=== PATIENT | female | born 1940 | race Caucasian/White ===

== ENCOUNTER → 2019-07-25 13:52 | Outpatient (CLI) | payer MEDICARE, OTHER, SELFPAY ==
[2019-07-25 14:43] LABS: Add Manual Diff / Slide Review NO; Basophils Absolute Auto 0 /uL (0-100); Basophils Percent Auto 0.6 % (0-2); Eosinophils Absolute Auto 100 /uL (0-450); Eosinophils Percent Auto 1.3 % (2-4); Hematocrit 41.9 % (36-46); Hemoglobin 13.9 g/dL (12.0-16.0); Lymphocytes Absolute Auto 1200 /uL (1100-4500); Lymphocytes Percent Auto 25.8 % (25-40); Mean Corpuscular HGB Conc 33.2 % (30-36); Mean Corpuscular Hemoglobin 30.7 PG (26-34); Mean Corpuscular Volume 92.5 fL (80-100); Monocytes Absolute Auto 300 /uL (0-900); Monocytes Percent Auto 6.5 % (3-14); Neutrophils Absolute Auto 3000 /uL (1500-7000); Neutrophils Percent Auto 65.8 % (50-75); Platelet Count 201 X10^3/uL (150-400); Red Blood Cell Count 4.53 X10^6/uL (4.0-5.2); Red Cell Distribution Width 13.2 % (11.6-14.8); White Blood Cell Count 4.6 X10^3/uL (4.5-11.0)
[2019-07-25 15:05] LABS: Erythrocyte Sedimentation Rate 4 MM/HR (0-20)
[2019-07-25 15:19] LABS: C-Reactive Protein Quant < 0.5 mg/dL (<1.0)
== END ==
PROVIDERS: Visit Provider Orthopaedic Surgery
DX: M79.605 Pain in left leg (principal)
CPT/HCPCS: 36415; 85025; 85651; 86140

== ENCOUNTER → 2019-07-29 14:44 | Outpatient (CLI) | payer MEDICARE, OTHER, SELFPAY ==
--- NOTE | 2019-07-29 | DI.MRI.S_ITS ---
PROCEDURE: MR LUMBAR SPINE WO CON INDICATIONS: IDIOPATHIC SCOLIOSIS TECHNIQUE: Noncontrast sagittal T1 spin echo and T2 fast echo, sagittal STIR, axial T1 and T2 fast spin echo through the lumbar spine. In cases with scoliosis, additional coronal T2 fast spin echo may be performed. COMPARISON: [facility], CR, XR LUMBAR SPINE 2 OR 3 VIEWS, 07/25/2019, 13:06. FINDINGS: Image quality: Excellent. Alignment and Curvature: Severe kyphoscoliosis centered at the L3 level. Trace retrolisthesis of L3 on L4 and L4 on L5 Bone Marrow: No fracture or focal osseous destruction. Multilevel degenerative endplate sclerosis and spurring. Diffuse facet arthropathy. Spinal Cord: Conus medullaris terminates at the L1 level. Visualized cord demonstrates normal signal and size. Paraspinous Soft Tissues: No paravertebral masses. L1-L2: No canal stenosis. Partial effacement of the left lateral recess. The right lateral recess appears patent. No right-sided foraminal narrowing, however the left neuroforamina is not well-seen due to scoliotic curvature L2-L3: No high-grade central canal narrowing. There is partial effacement of the left lateral recess. The right lateral recess appears patent. No right foraminal stenosis. Mild left foraminal narrowing L3-L4: No high-grade canal stenosis. Partial effacement of both lateral recesses with bilaterally symmetric appearance. Mild bilateral foraminal narrowing. L4-L5: No central canal or lateral recess narrowing. Minimal left foraminal stenosis. Moderate right foraminal narrowing with slight nerve root compression L5-S1: No high-grade central canal stenosis. Lateral recess appear patent. No definite left foraminal stenosis. Moderate to severe right foraminal narrowing with minimal if any nerve root compression IMPRESSION: Diffuse lumbar spondylosis and severe dextroscoliosis centered at the L3 level. No high-grade central canal narrowing. Moderate right L4-L5 foraminal stenosis. Moderate to severe right L5-S1 foraminal stenosis Dictated by: Thanh Jeff M.D. on 07/29/2019 at 16:19 Approved by: Thanh Jeff M.D. on 07/29/2019 at 16:26
--- NOTE | 2019-07-29 | DI.MRI.S_ITS ---
PROCEDURE: MR HIP LT WO CON INDICATIONS: Other idiopathic scoliosis, thoracolumbar region TECHNIQUE: Noncontrast coronal T1 spin echo and STIR through the bony pelvis. Coronal and axial T2 fast spin echo with fat saturation, sagittal T1 spin echo, and oblique axial T2 fast spin echo with fat saturation through the hip. COMPARISON: [facility], CR, XR PELVIS WITH LATERAL HIP LEFT, 07/25/2019, 13:12. [facility], CT, ABDOMEN/PELVIS WITH CONTRAST, 04/28/2017, 23:40. FINDINGS: Image quality: Suboptimal related to susceptibility artifact from the patient's left hip arthroplasty. Bones: Evaluation of the osseous structures of the left hip is suboptimal related to susceptibility artifact from a left hip prosthesis. No displaced fractures or dislocations are appreciated involving the imaged osseous structures. There is a moderate-sized left hip effusion with associated synovial hypertrophy. Imaged portions of the lower lumbar spine demonstrates severe multilevel degenerative changes that are not well characterized. There are moderate degenerative changes of the right hip and sacroiliac joints. Soft tissues: Evaluation of the overlying soft tissues is suboptimal related to metallic susceptibility artifact from the left hip prosthesis. However, there is no soft tissue mass or fluid collection evident. The distal left gluteus medius and gluteus minimus tendons are intact. The proximal hamstrings and distal iliopsoas tendons are also intact. There is no significant muscle atrophy or edema. Included intrapelvic structures demonstrate no free fluid or loculated fluid collection. Imaged bowel loops do not appear to be distended or dilated. No adenopathy is appreciated within the pelvis. The urinary bladder is decompressed and subsequently not well evaluated. A large amount of stool seen within the rectal vault. IMPRESSION: 1. Left hip arthroplasty results in suboptimal evaluation of the left hip. 2. Moderate-sized left hip effusion with associated synovial hypertrophy may be reactive to the patient's left hip prosthesis. The possibility of metallosis or superimposed joint infection should be excluded clinically. 3. No acute fractures are appreciated. Dictated by: Orestes Willoughby M.D. on 07/29/2019 at 15:35 Approved by: Orestes Willoughby M.D. on 07/29/2019 at 15:40
== END ==
PROVIDERS: PCP Family Medicine; Visit Provider Family Medicine
DX: M41.25 Other idiopathic scoliosis, thoracolumbar region (principal); R29.898 Other symptoms and signs involving the musculoskeletal system; M47.816 Spondylosis without myelopathy or radiculopathy, lumbar region; M47.818 Spondylosis without myelopathy or radiculopathy, sacral and sacrococcygeal region; M48.061 Spinal stenosis, lumbar region without neurogenic claudication; M48.07 Spinal stenosis, lumbosacral region; M51.37 Other intervertebral disc degeneration, lumbosacral region; M25.452 Effusion, left hip; M41.9 Scoliosis, unspecified; M79.605 Pain in left leg; Z96.642 Presence of left artificial hip joint
CPT/HCPCS: 72148; 73721

== ENCOUNTER → 2020-08-31 11:08 | Outpatient (CLI) | payer MEDICARE, OTHER, SELFPAY ==
--- NOTE | 2020-08-31 | DI.MRI.S_ITS ---
PROCEDURE: MR STROKE Pre- and post-contrast brain MRI, non-contrast brain MR angiogram, pre- and postcontrast neck MR angiogram INDICATIONS: BLURRED VISION TECHNIQUE: Brain: Noncontrast axial T1 spin echo, axial T2 fast spin echo, sagittal and axial FLAIR, coronal T2 fast spin echo, axial gradient echo, axial diffusion and ADC through the brain. After the administration of contrast, axial 3D VIBE of the cranial vasculature and brain. Brain MRA: Non-contrast 3-D time of flight MR angiogram, with multiple zartuly-zrxwyhfwy-largcfgoav (MIP) reformats performed. Neck MRA: Axial and sagittal TruFISP through the neck. Coronal dynamic MR angiogram during administration of contrast in the arterial and venous phases, with 3-dimenstional qqmtumb-abifehcgo-vtdrxjgnkw (MIP) reformats constructed from subtraction images. COMPARISON: None. FINDINGS: Image quality: Degraded by body habitus. BRAIN: CSF spaces: Ventricles are normal in size and shape. Basal cisterns are patent. No extra-axial fluid collections. Brain: No intracranial bleeds or mass effects. Mild diffuse cerebral volume loss. Minimal degree of patchy high FLAIR signal within the periventricular white matter. Brandon-white matter interface is normal. Diffusion weighted images show no acute ischemic insults. Brainstem appears normal. Normal intravascular flow voids are present. No abnormal intracranial enhancement. Skull and face: Calvarial marrow signal is normal. Orbits appear normal. Sinuses: Sinuses and mastoids are clear. BRAIN MR ANGIOGRAM: Anterior circulation: Intracranial internal carotid arteries are normal in size and enhancement. Right proximal anterior cerebral artery is suboptimally evaluated secondary to the vessel angulation, but is grossly patent. Left anterior cerebral artery is within normal limits.. The flow within the middle cerebral arteries is normal and symmetric. The anterior communicating artery is seen. No stenoses, occlusions, or aneurysms. Posterior circulation: The visualized portions of the vertebral arteries demonstrate normal caliber, and join to form a normal appearing basilar artery. The flow within the posterior cerebral arteries is normal and symmetric. No stenoses, occlusions, or aneurysms. NECK MR ANGIOGRAM: Carotids: Great vessels demonstrate a conventional anatomy as they arise from the aortic arch. The origins of the common carotid arteries appear patent. The calibers and courses of both common carotid arteries are normal. The bifurcation regions appear normal bilaterally. The internal carotid arteries demonstrate normal course and caliber. Posterior circulation: The origins of the vertebral arteries appear patent. More superior portions of both vertebral arteries demonstrate normal course and caliber, and join to form a normal appearing basilar artery. Miscellaneous: Subclavian arteries appear patent. Pre-contrast images through the neck show no soft tissue abnormalities. IMPRESSION: BRAIN MRI: Mild volume loss. Minimal small vessel ischemic disease. No recent infarct. BRAIN MR ANGIOGRAM: Negative cerebral MR angiography. NECK MR ANGIOGRAM: 1. No internal carotid artery stenosis. 2. Patent bilateral vertebral arteries. Dictated by: Charlie Castelan M.D. on 08/31/2020 at 14:09 Approved by: Charlie Castelan M.D. on 08/31/2020 at 14:13
== END ==
PROVIDERS: PCP Family Medicine; Referring Provider Family Medicine; Visit Provider Family Medicine
DX: H53.8 Other visual disturbances (principal)
CPT/HCPCS: 70548; 70553

== ENCOUNTER → 2020-11-10 12:52 | Outpatient (CLI) | payer MEDICARE, OTHER, SELFPAY ==
--- NOTE | 2020-11-10 12:54 | DI.CT.S_ITS ---
PROCEDURE: CT CHEST WO CON INDICATIONS: Cough,Parkinson's disease TECHNIQUE: Noncontrast 5 mm thick sections acquired from the pulmonary apices to the posterior costophrenic angles. 1 mm lung window, 5 mm thick coronal and sagittal and 7 mm axial MIP reformats were then acquired. For radiation dose reduction, the following was used: automated exposure control, adjustment of mA and/or kV according to patient size. COMPARISON: None. FINDINGS: Image quality: Excellent. Lungs and pleura: No acute air space opacities. There is no sign of pneumonia or bronchiectasis, or pleural disease. Scoliosis convex leftward centered at the lower thoracic spine is associated with convex rightward scoliosis at the lumbosacral spine. This produces a uhnv-ly-skbklnfu degree of compensatory reduction and increase in lung parenchyma depending on the association with the curvatures. There is a thin band of atelectasis at the right anterior middle lobe medial segment, chronic in appearance. No pleural effusions or pneumothorax. Central and peripheral airways are patent and normal in caliber. Mediastinum: Heart size is normal. No pericardial effusion. No mediastinal adenopathy by size criteria. Thoracic aorta and central pulmonary arteries are normal in size. Esophagus is normal in caliber. No hiatal hernia. Bones and chest wall: No suspicious bony lesions. No vertebral body compression fractures. No axillary or supraclavicular adenopathy by size criteria. Thyroid gland is not well seen by this noncontrast technique . Abdomen: Visualized upper abdominal solid organs and bowel loops appear normal in the absence of contrast. IMPRESSION: Scoliosis with resultant small areas of atelectasis depending on the curvature nearby. No active airspace disease is found. A thin band of linear atelectasis is seen within the medial segment right middle lobe as result. No bronchiectasis or evidence of chronic bronchitis is found by this study. No underlying neoplasm is suspected. Dictated by: Bruce Santo M.D. on 11/10/2020 at 12:19 Approved by: Bruce Santo M.D. on 11/10/2020 at 12:22
== END ==
PROVIDERS: PCP Family Medicine; Referring Provider Family Medicine; Visit Provider Family Medicine
DX: R05 Cough (principal); G20 Parkinson's disease; M41.84 Other forms of scoliosis, thoracic region
CPT/HCPCS: 71250

== ENCOUNTER → 2021-07-06 11:27 | Outpatient (CLI) | payer MEDICARE, OTHER, SELFPAY ==
--- NOTE | 2021-07-06 11:28 | DI.MRI.S_ITS ---
PROCEDURE: MR CERVICAL SPINE WO CON INDICATIONS: Other abnormalities of gait and mobility TECHNIQUE: Noncontrast sagittal T1 spin echo and T2 fast spin echo, sagittal STIR, foraminal oblique sagittal T2 fast spin echo, and axial gradient echo or T2 fast spin echo through the cervical spine. COMPARISON: None. FINDINGS: Image quality: Excellent. Alignment and Curvature: There is grade 1 anterolisthesis of C4 on C5 and C6 on C7 and grade 1 retrolisthesis of C5 on C6. Bone Marrow: Marrow demonstrates normal overall signal. Spinal Cord: Visualized spinal cord has normal size and signal. No cerebellar tonsillar herniation. Paraspinous Soft Tissues: No paravertebral masses. Prevertebral soft tissues are normal in thickness. C2-C3: There is disc desiccation without significant disc bulging. No significant spinal canal stenosis or neural foraminal narrowing. C3-C4: There is disc desiccation as well as mild left uncovertebral and facet hypertrophy, resulting in mild narrowing of the left neural foramen without significant right neural foraminal narrowing or spinal canal stenosis. C4-C5: There is grade 1 anterolisthesis of C4 on C5 with disc desiccation and mild posterior disc-osteophyte complex as well as bilateral facet and uncovertebral joint hypertrophy. Findings result in mild bilateral neural foraminal narrowing without significant spinal canal stenosis. C5-C6: There is mild grade 1 retrolisthesis of C5 on C6 with disc desiccation and disc space narrowing as well as posterior disc osteophyte complex and bilateral uncovertebral joint and facet hypertrophy. Findings result in mild narrowing of the central spinal canal as well as moderate to severe bilateral neural foraminal narrowing. C6-C7: There is grade 1 anterolisthesis of C6 on C7 with disc desiccation and disc space narrowing as well as posterior disc-osteophyte complex and bilateral uncovertebral joint and facet hypertrophy. Findings result in mild narrowing of the central spinal canal and mild bilateral neural foraminal narrowing. C7-T1: No significant spinal canal stenosis or neural foraminal narrowing. IMPRESSION: 1. At C5-6, and there is mild spinal canal narrowing and moderate to severe bilateral neural foraminal narrowing. 2. Additional multilevel degenerative disc disease and facet and uncovertebral joint hypertrophy is described in detail in the body of the report. No high-grade spinal canal stenosis. 3. Mild multilevel grade 1 degenerative spondylolisthesis. Dictated by: Rasheed Moran M.D. on 07/06/2021 at 15:11 Approved by: Rasheed Moran M.D. on 07/06/2021 at 15:24
--- NOTE | 2021-07-06 11:28 | DI.MRI.S_ITS ---
PROCEDURE: MR HEAD/BRAIN WO CON INDICATIONS: Other abnormalities of gait and mobility TECHNIQUE: Non-contrast axial T1 spin echo, axial T2 fast spin echo, sagittal and axial FLAIR, coronal T2 fast spin echo, axial gradient echo, axial diffusion and ADC through the brain. COMPARISON: None. FINDINGS: Image quality: Excellent. CSF spaces: Ventricles appear symmetric in size and shape. Basal cisterns are patent. No extra-axial fluid collections. Brain: No intracranial bleeds or mass effects. There is cerebral volume loss for age. There are periventricular and deep white matter chronic small vessel ischemic changes. Brainstem appears normal. Diffusion-weighted images show no acute ischemic insults. No chronic ischemic insults. Normal intravascular flow voids are present. Skull and face: Calvarial bone marrow is normal in signal. Orbits are normal. Sinuses: Sinuses and mastoids are clear. IMPRESSION: Diffuse small white matter changes, probably represent chronic microvascular ischemic disease, versus statistically less likely demyelination or other infectious, inflammatory, neurodegenerative etiology, technically nonspecific. Dictated by: Thanh Jeff M.D. on 07/06/2021 at 16:31 Approved by: Thanh Jeff M.D. on 07/06/2021 at 16:34
== END ==
PROVIDERS: PCP Family Medicine; Referring Provider Psychiatry & Neurology Neurology; Visit Provider Psychiatry & Neurology Neurology
DX: M48.02 Spinal stenosis, cervical region (principal); M50.31 Other cervical disc degeneration, high cervical region; M43.12 Spondylolisthesis, cervical region; R26.89 Other abnormalities of gait and mobility; R29.2 Abnormal reflex; R29.6 Repeated falls
CPT/HCPCS: 70551; 72141

== ENCOUNTER → 2021-08-25 10:49 | Outpatient (CLI) | payer MEDICARE, OTHER, SELFPAY ==
--- NOTE | 2021-08-25 10:52 | DI.US.S_ITS ---
PROCEDURE: US EXTREMITY NONVASC LOWER LT INDICATIONS: Localized swelling, mass and lump, left lower limb TECHNIQUE: Real-time scanning was performed of the left medial anterior calf , with image documentation. COMPARISON: None. FINDINGS: No definitive mass, fluid collection or lymphadenopathy is seen. IMPRESSION: No definitive sonographic mass identified in the region of interest. Dictated by: Julian HILL Interpreted: Pradeep Paiz MD on 08/25/2021 at 11:28 Transcribed by: VALENTINA on 08/25/2021 at 11:29 Approved by: Pradeep Paiz M.D. on 08/25/2021 at 12:47
== END ==
PROVIDERS: PCP Family Medicine; Referring Provider Family Medicine; Visit Provider Family Medicine
DX: R22.42 Localized swelling, mass and lump, left lower limb (principal)
CPT/HCPCS: 76882

== ENCOUNTER → 2021-10-10 11:03 | Outpatient (CLI) | payer MEDICARE, OTHER, SELFPAY | PROVIDERS: PCP Family Medicine; Referring Provider Family Medicine; Visit Provider Family Medicine | DX: I89.0 Lymphedema, not elsewhere classified (principal); L97.822 Non-pressure chronic ulcer of other part of left lower leg with fat layer exposed; L08.9 Local infection of the skin and subcutaneous tissue, unspecified; R60.0 Localized edema; G20 Parkinson's disease; I87.2 Venous insufficiency (chronic) (peripheral); Z74.09 Other reduced mobility | CPT/HCPCS: 11042; 87070; 87075; 87077; 87147; 87186; 87205; 99204; 99214 ==

== ENCOUNTER → 2021-10-19 15:45 | Outpatient (CLI) | payer MEDICARE, OTHER, SELFPAY | PROVIDERS: PCP Family Medicine; Referring Provider Family Medicine; Visit Provider Family Medicine | DX: I89.0 Lymphedema, not elsewhere classified (principal); I87.2 Venous insufficiency (chronic) (peripheral); L97.822 Non-pressure chronic ulcer of other part of left lower leg with fat layer exposed; L97.821 Non-pressure chronic ulcer of other part of left lower leg limited to breakdown of skin; L08.9 Local infection of the skin and subcutaneous tissue, unspecified; B95.7 Other staphylococcus as the cause of diseases classified elsewhere; R60.0 Localized edema; G20 Parkinson's disease; Z74.09 Other reduced mobility | CPT/HCPCS: 11042; 87070; 87075; 87205; 99214 ==

== ENCOUNTER → 2021-11-03 15:53 | Outpatient (CLI) | payer MEDICARE, OTHER, SELFPAY | PROVIDERS: PCP Family Medicine; Referring Provider Family Medicine; Visit Provider Family Medicine | DX: I89.0 Lymphedema, not elsewhere classified (principal); I87.2 Venous insufficiency (chronic) (peripheral); L97.822 Non-pressure chronic ulcer of other part of left lower leg with fat layer exposed; R60.0 Localized edema; G20 Parkinson's disease; Z74.09 Other reduced mobility | CPT/HCPCS: 11042 ==

== ENCOUNTER → 2021-11-09 15:10 | Outpatient (CLI) | payer MEDICARE, OTHER, SELFPAY | PROVIDERS: PCP Family Medicine; Referring Provider Family Medicine; Visit Provider Family Medicine | DX: I89.0 Lymphedema, not elsewhere classified (principal); L97.822 Non-pressure chronic ulcer of other part of left lower leg with fat layer exposed; R60.0 Localized edema; G20 Parkinson's disease; Z74.09 Other reduced mobility | CPT/HCPCS: 11042 ==

== ENCOUNTER → 2021-11-15 13:36 | Outpatient (CLI) | payer MEDICARE, OTHER, SELFPAY ==
--- NOTE | 2021-11-15 | DI.ECHO.S_ITS ---
[place] [facility] +---------+ : : [address] : : : : [id number] : : : : Phone: [phone]+ Echocardiogram Report + + :Name: MEGAN LEUNG Study Date: 11/15/2021 Height: 64.5 in: :[facility] ReadingLocation: Weight: 135 lb : : Gender: Female BSA: 1.7 m2 : :: 1940 Age: 81 yrs BP: 118/67 mmHg: :Reason For Study: ATRAIL PREMATURE DEPOLARIZATION : :Ordering Physician: GLADYS, : :ALCON Performed By: Gabi Tomlinson : :Referring: ALCON LANG : + + Interpretation Summary 1) Normal left ventricular thickness, size, wall motion, and systolic function (EF 60-65%). 2) Normal right ventricular size and function. 3) There is mild aortic regurgitation. 4) No prior Echo available for comparison. Procedure: A two-dimensional transthoracic echocardiogram with color flow and Doppler was performed. The study quality was technically adequate. There is no prior echocardiogram noted for this patient. The patient was in sinus rhythm with heart rates between 63-73 bpm during the exam. Left Ventricle: The left ventricle is normal in size and wall thickness. Proximal septal thickening is noted. The ejection fraction is estimated to be 60-65%. Left ventricular systolic function appears normal without focal wall motion abnormalities. Right Ventricle: The right ventricle is normal in size and function. Atria: The left atrium is moderately dilated. Right atrial size is normal. There is no Doppler evidence for an interatrial shunt. Mitral Valve: The mitral valve is normal in structure and function. There is mild mitral annular calcification. There is trace mitral regurgitation. Aortic Valve: The aortic valve is trileaflet. The aortic valve opens well. There is no aortic valve stenosis. There is mild aortic regurgitation. Tricuspid Valve: The tricuspid valve is normal in structure and function. There is mild tricuspid regurgitation. Pulmonic Valve: The pulmonic valve leaflets are thin and pliable; valve motion is normal. There is trace pulmonic regurgitation. Great Vessels: The aortic root is normal size. The ascending aorta is at the upper limits of normal in size. The IVC is of normal diameter and collapses greater than 50% with a sniff. This suggests a low right atrial pressure of 3 mm Hg. Pericardium/ Pleura There is no pericardial effusion. There is no pleural effusion. MMode/2D Measurements & Calculations LVIDd: 4.2 cm LVOT diam: 2.2 cm LVIDs: 2.6 cm Ao root diam: 3.4 cm FS: 38.1 % asc Aorta Diam: 3.7 cm IVSd: 0.58 cm Ao Arch Diam (Prox Trans): 2.3 cm LVPWd: 0.81 cm LV sr. diameter/BSA (cm/m^2): 2.5 LV sys. diameter/BSA (cm/m^2): 1.6 LA A2 area: 26.9 cm2 RA long axis: 5.5 cm LA A4 area: 18.7 cm2 RA area: 16.4 cm2 LA length (vol): 5.4 cm RA vol: 42.1 ml LA vol: 79.8 ml RA : 25.3 ml/m2 LA vol index: 47.9 ml/m2 IVC diam: 1.5 cm RVD1 (basal): 3.5 cm TAPSE: 1.9 cm Doppler Measurements & Calculations Ao V2 max: 159.5 cm/sec LVOT Max Akil: 147.4 cm/sec Ao V2 mean: 115.5 cm/sec LV V1 max P.7 mmHg Ao max P.2 mmHg LV V1 VTI: 29.9 cm Ao mean P.8 mmHg PATRICA(I,D): 3.2 cm2 Ao V2 VTI: 36.5 cm PATRICA(V,D): 3.7 cm2 sev ratio: 0.82 PATRICA indexed to BSA (cm^2/m^2): 1.9 MV E max akil: 85.3 cm/sec TR max akil: 252.2 cm/sec MV A max akil: 103.7 cm/sec TR max P.5 mmHg MV E/A: 0.82 PA V2 max: 103.9 cm/sec Med Peak E' Akil: 5.8 cm/sec PA V2 mean: 75.7 cm/sec E/E' med: 14.7 PA mean P.5 mmHg Lat Peak E' Akil: 9.3 cm/sec PA pr(Accel): 19.1 mmHg E/E' lat: 9.2 E/e' average: 11.9 MV dec time: 0.26 sec SV(LVOT): 118.3 ml Reading Physician:12:00 PM
== END ==
PROVIDERS: PCP Family Medicine; Referring Provider Internal Medicine Cardiovascular Disease; Visit Provider Internal Medicine Cardiovascular Disease
DX: I08.2 Rheumatic disorders of both aortic and tricuspid valves (principal); I49.1 Atrial premature depolarization; R60.0 Localized edema
CPT/HCPCS: 93306

== ENCOUNTER → 2022-10-06 11:00 | Outpatient (CLI) | payer MEDICARE, OTHER, SELFPAY ==
--- NOTE | 2022-10-06 | DI.MG.S_ITS ---
BILATERAL DIGITAL SCREENING MAMMOGRAM 3D/2D WITH CAD: 10/06/2022 CLINICAL: Routine screening. Comparison is made to exams dated: 02/12/2019 mammogram, 06/08/2016 mammogram, and 12/02/2014 mammogram - outside facility. Both breasts are heterogeneously dense, which may obscure small masses (category c / 51-75% glandular tissue). Current study was also evaluated with a Computer Aided Detection (CAD) system. No significant masses, calcifications, or other findings are seen in either breast. There has been no significant interval change. IMPRESSION: NEGATIVE There is no mammographic evidence of malignancy. A 1 year screening mammogram is recommended. Based on the Tyrer Cuzick model (a risk assessment model) the patient's lifetime risk is 1.2% and her 10 year risk is 0.0%. According to the ACR, ACS, and NCCN guidelines, an annual breast MRI exam along with mammogram is recommended if the patient's lifetime risk is 20% or greater. This exam was interpreted at Station ID: [id number]. NOTE: For mammograms, a report in lay terms will be sent to the patient. Approximately 15% of breast malignancies will not be visualized mammographically. In the management of a palpable breast mass, a negative mammogram must not discourage biopsy of a clinically suspicious lesion. Electronically Signed By: Maggie vega/francine:10/06/2022 14:08:44 letter sent: Normal Exam ACR BI-RADS Category 1: Negative [id number]
== END ==
PROVIDERS: PCP Family Medicine; Referring Provider Family Medicine; Visit Provider Family Medicine
DX: Z12.31 Encounter for screening mammogram for malignant neoplasm of breast (principal)
CPT/HCPCS: 77063; 77067

== ENCOUNTER 2023-03-20 22:53 | Emergency (ER) | payer MEDICARE, OTHER, SELFPAY ==
[2023-03-20 23:32] VITALS: BP 112/53; PULSE 70; RESP 18; TEMP 36.1; O2SAT 96; BMI 23.3
[2023-03-20 23:55] VITALS: BP 97/51; PULSE 80; RESP 18; O2SAT 97
--- NOTE | 2023-03-21 00:05 | DI.CT.S_ITS ---
PROCEDURE: CT ABDOMEN PELVIS W CON INDICATIONS: R sided flank pain TECHNIQUE: After the administration of IV contrast, axial sections were acquired from the lung bases to the pubic symphysis. Coronal and sagittal reformats were performed. For radiation dose reduction, the following was used: automated exposure control, adjustment of mA and/or kV according to patient size. COMPARISON: [facility], CT, ABDOMEN/PELVIS WITH CONTRAST, 04/28/2017, 23:40. FINDINGS: Image quality: There is metallic streak artifact from patient's left hip prosthesis. Lung bases: There is mild scarring and atelectasis in the lung bases. Heart: Heart is normal in size. There is a moderate size hiatal hernia. ABDOMEN: Liver: No mass lesion. Gallbladder: Within normal limits without calcified gallstones. Biliary ducts: No biliary ductal dilatation. Pancreas: Unremarkable. Spleen: Normal in size. Adrenal Glands: No adrenal nodules. Kidneys and Ureters: There is an obstructing stone at the right ureteropelvic junction measuring up to 1.2 cm with attenuation values of approximately 2862-4513 Hounsfield units. There is moderate right hydronephrosis with mild urothelial thickening. No left hydronephrosis. Stomach and Bowel: Stomach, small bowel loops, and colon are normal in caliber and wall thickness. The appendix is normal. There is a moderate amount of colonic stool suggestive of constipation. Peritoneum: No abnormal intraperitoneal fluid. No free air. Ventral Wall: No hernia. Abdominal Nodes: No retroperitoneal or mesenteric adenopathy by size criteria. Vessels: Aorta and inferior vena cava are normal in size. 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 PELVIS: Pelvic Organs: There is a left adnexal cyst measuring up to 2.3 cm. Bladder: Unremarkable. Pelvic Nodes: No enlarged lymph nodes. Miscellaneous: No inguinal hernias are seen. Bones: There is a dextroscoliosis of the thoracolumbar spine centered at L2. Visualized osseous structures demonstrate no suspicious focal lesions. IMPRESSION: 1. Obstructing urinary stone at the right UPJ with moderate hydronephrosis. There is associated mild urothelial thickening. Recommend correlation clinically for possible urinary tract infection. 2. Moderate hiatal hernia. Dictated by: Narendra Chacko M.D. on 03/21/2023 at 1:37 Approved by: Narendra Chacko M.D. on 03/21/2023 at 1:55
--- NOTE | 2023-03-21 00:05 | ED_ITS ---
HPI - Back Pain/Injury General Chief Complaint: Back Pain/Injury Stated Complaint: states possible kidney stone Time Seen by Provider: 03/20/23 23:50 Source: patient and family Mode of arrival: Ambulatory Limitations: no limitations History of Present Illness HPI Narrative: Patient is an 82-year-old female who is here for evaluation of right-sided flank pain and concern for potential kidney stone. She has had kidney stones in the past and this feels somewhat similar to that. Started to have right-sided flank pain a couple days ago that got worse yesterday. Saw her primary doctor. Had a urinalysis that had blood in the urine. Was sent here to the emergency department for concern of UTI. She also states she is having somewhat of a headache. No fevers. Related Data Home Medications Medication Instructions Recorded Confirmed carbidopa 10 mg-levodopa 100 mg ##0 04/28/17 02/16/21 tablet calcium carbonate 500 mg calcium 500 mg PO DAILY 12/29/20 02/16/21 (1,250 mg) tablet carbidopa ER 50 mg-levodopa 200 mg 1 tab PO BEDTIME 12/29/20 02/16/21 tablet,extended release cholecalciferol (vitamin D3) 25 25 mcg PO DAILY 12/29/20 02/16/21 mcg (1,000 unit) capsule cyclosporine 0.05 % eye drops drp ophthalmic (eye) Q12H 12/29/20 02/16/21 ibuprofen 800 mg tablet 800 mg PO Q8H PRN pain 12/29/20 02/16/21 melatonin 1 mg tablet 1 mg PO BEDTIME PRN 12/29/20 02/16/21 pramipexole 0.125 mg tablet 0.25 mg PO BEDTIME 12/29/20 02/16/21 rasagiline 0.5 mg tablet 0.5 mg PO DAILY 12/29/20 02/16/21 Previous Rx's Medication Instructions Recorded ibuprofen 600 mg tablet 600 mg PO Q6HP PRN #20 tabs 04/29/17 sertraline 25 mg tablet 25 mg PO DAILY #90 tabs 04/29/21 hydrocodone 5 mg-acetaminophen 325 1 tab PO Q4-6H PRN pain #10 tabs 10/20/ mg tablet Allergies Allergy/AdvReac Type Severity Reaction Status Date / Time latex [LATEX] Allergy Unknown FROM EXAM Verified 02/16/21 15:38 GLOVES, REDNESS, BLISTERS Review of Systems Constitutional Constitutional: Reports system reviewed and no additional complaints, except as documented Gastrointestinal Gastrointestinal: Reports system reviewed and no additional complaints, except as documented Genitourinary Genitourinary: Reports system reviewed and no additional complaints, except as documented Musculoskeletal Musculoskeletal: Reports system reviewed and no additional complaints, except as documented Patient History Medical History Occipital scalp laceration Visit for suture removal Surgical History (Updated 12/29/20 @ 09:24 by Esther Her CMA) H/O hernia repair H/O: hysterectomy History of hemiarthroplasty of left hip (~2018) Social History Smoking Status: Never smoker Smoking Status: Never smoker alcohol intake frequency: a few times a week Substance Use Type: does not use Exam Initial Vital Signs Initial Vital Signs: Vital Signs Temperature 97 F L 03/20/23 23:32 Pulse Rate 70 03/20/23 23:32 Respiratory Rate 18 03/20/23 23:32 Blood Pressure 112/53 L 03/20/23 23:32 Pulse Oximetry 96 03/20/23 23:32 Oxygen Delivery Method Room Air 03/20/23 23:32 HENMT Head: normal to inspection and normocephalic Resp Effort & Inspection: normal respiratory effort Cardio Rate: regular rate GI Inspection: normal to inspection and non-distended Palpation: soft and No tender Extrem General: normal to inspection Course Orders Ordered: ED Orders 03/20/23 23:56 Complete Blood Count AUTO DIFF Stat Comprehensive Metabolic Panel Stat Lipase Stat 03/21/23 00:05 CT abdomen pelvis w con Stat 03/21/23 02:20 Urine Culture Stat Urine Microscopic Stat Vital Signs Vital signs: Vital Signs - 8 hr 03/20/23 23:32 03/20/23 23:55 03/21/23 02:32 Temperature 97 F L 97.2 F L Pulse Rate 70 80 64 Respiratory Rate 18 18 Blood Pressure 112/53 L 97/51 L 120/56 L Pulse Oximetry 96 97 95 Oxygen Delivery Method Room Air Room Air MDM - Back Pain/Injury Lab Data Attestation: I reviewed the patient's lab results. 03/21/23 00:10 03/21/23 00:10 Labs: Lab Results 03/21/23 03/21/23 03/21/23 Range/Units 00:10 00:10 02:20 WBC 5.6 (4.5-11.0) X10^3/uL RBC 3.91 L (4.0-5.2) X10^6/uL Hgb 11.8 L (12.0-16.0) g/dL Hct 35.2 L (36-46) % MCV 90.1 (80-100) fL MCH 30.2 (26-34) PG MCHC 33.5 (30-36) % RDW 12.9 (11.6-14.8) % Plt Count 183 (150-400) X10^3/uL Neut % (Auto) 73.4 (50-75) % Lymph % (Auto) 17.6 L (25-40) % [place] % (Auto) 6.8 (3-14) % Eos % (Auto) 1.9 L (2-4) % Baso % (Auto) 0.3 (0-2) % Neut # (Auto) 4100 (6134-4768) /uL Lymph # (Auto) 1000 L (3826-2234) /uL [place] # (Auto) 400 (0-900) /uL Eos # (Auto) 100 (0-450) /uL Baso # (Auto) 0 (0-100) /uL Sodium 135 L (137-145) mmol/L Potassium 3.5 (3.4-5.1) mmol/L Chloride 102 (98-107) mmol/L Carbon Dioxide 27 (22-32) mmol/L BUN 24 H (7-17) mg/dL Creatinine 0.71 (0.52-1.04) mg/dL Estimated GFR > 60 (>60) mL/min BUN/Creatinine Ratio 33.8 H (6-22) Glucose 159 H (80-110) mg/dL Calcium 8.9 (8.4-10.2) mg/dL Total Bilirubin 0.6 (0.2-1.3) mg/dL AST 28 (14-36) IU/L ALT 10 (<35) IU/L Alkaline Phosphatase 84 (38-126) U/L Total Protein 6.3 (6.3-8.2) g/dL Albumin 3.5 (3.5-5.0) g/dL Globulin 2.8 (1.7-4.1) g/dL Albumin/Globulin Ratio 1.3 (1.0-2.8) Lipase 254 (23-300) U/L Urine RBC 1-5/hpf (0-5/HPF) Urine WBC 1-5/hpf (0-5/HPF) Ur Squamous Epith Cells None seen (0-5/HPF) Urine Bacteria None seen (None) Ur Culture Indicated? Specimen cultured Urine Dip Bedside Urine Bilirubin - Negative Bedside Urine Ketone - Negative Urine Specific Venus 1.015 Bedside Urine Occult Blood +++ Bedside Urine Protein +/- 15 Bedside Urine Urobilinogen - Negative Bedside Urine Nitrite - Negative Bedside Urine Leukocytes +/- [address] scan - abdomen/pelvis: Radiologist's Impression: PROCEDURE:? CT ABDOMEN PELVIS W CON ? INDICATIONS:? R sided flank pain ? TECHNIQUE:? After the administration of IV contrast, axial sections were acquired from the lung bases to the pubic symphysis.? Coronal and sagittal reformats were performed.? For radiation dose reduction, the following was used:? automated exposure control, adjustment of mA and/or kV according to patient size. ? COMPARISON:? [facility], CT, ABDOMEN/PELVIS WITH CONTRAST, 04/28/2017, 23:40. ? FINDINGS:? Image quality:? There is metallic streak artifact from patient's left hip prosthesis.? ? Lung bases:? There is mild scarring and atelectasis in the lung bases.? ? Heart:? Heart is normal in size.? There is a moderate size hiatal hernia. ? ? ABDOMEN: Liver:? No mass lesion. Gallbladder:? Within normal limits without calcified gallstones.? ? Biliary ducts:? No biliary ductal dilatation.? ? Pancreas:? Unremarkable.? ? Spleen:? Normal in size.? ? Adrenal Glands:? No adrenal nodules.? ? Kidneys and Ureters:? There is an obstructing stone at the right ureteropelvic junction measuring up to 1.2 cm with attenuation values of approximately 9284-8252 Hounsfield units.? There is moderate right hydronephrosis with mild urothelial thickening.? No left hydronephrosis. ? Stomach and Bowel:? Stomach, small bowel loops, and colon are normal in caliber and wall thickness.? The appendix is normal.? There is a moderate amount of colonic stool suggestive of constipation.? Peritoneum:? No abnormal intraperitoneal fluid.? No free air.? ? Ventral Wall: ? No hernia.? Abdominal Nodes:? No retroperitoneal or mesenteric adenopathy by size criteria.? Vessels:? Aorta and inferior vena cava are normal in size.? 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 ? PELVIS: Pelvic Organs:? There is a left adnexal cyst measuring up to 2.3 cm.? ? Bladder:? Unremarkable.? ? Pelvic Nodes: No enlarged lymph nodes.? Miscellaneous: No inguinal hernias are seen. ? ? ? Bones:? There is a dextroscoliosis of the thoracolumbar spine centered at L2.? Visualized osseous structures demonstrate no suspicious focal lesions. ? IMPRESSION:? ? 1. Obstructing urinary stone at the right UPJ with moderate hydronephrosis.? There is associated mild urothelial thickening.? Recommend correlation clinically for possible urinary tract infection. ? 2. Moderate hiatal hernia.? MDM Narrative Medical decision making narrative: Patient does have a fairly large right-sided proximal ureteral stone. Her ki dney function is unremarkable. Her urinalysis does not show any signs of a urinary tract infection. She has pain medication and also Flomax at home. Patient is resting in the room comfortably. Will discharge home with instructions to follow-up with urology. Discharge Plan Departure Patient Disposition: Home Clinical Impression: Right ureteral stone Instructions: DI for Kidney Stones Activity Restrictions/Additional Instructions: Recommend that you continue to take all of your medications as directed to include the Flomax on a daily basis and the pain medication as needed. I do recommend that you contact the Urology Department at the number provided below for a follow-up. Return to the emergency department for new or worsening symptoms. Prescriptions: No Action carbidopa-levodopa 10 MG/100 MG tablet Qty: 0 ibuprofen 600 MG tablet 600 mg PO Q6HP PRNQty: 20 0RF sertraline 25 mg tablet 25 mg PO DAILY Qty: 90 0RF hydrocodone-acetaminophen 5-325 mg tablet 1 tab PO Q4-6H PRN (Reason: pain) Qty: 10 0RF Rx Instructions: painful procedure cyclosporine 0.05 % drops ophthalmic (eye) Q12H ibuprofen 800 mg tablet 800 mg PO Q8H PRN (Reason: pain) pramipexole 0.125 mg tablet 0.25 mg PO BEDTIME Rx Instructions: TAKE 2 TABLETS (0.25 MG) BY MOUTH AT BEDTIME. rasagiline 0.5 mg tablet 0.5 mg PO DAILY melatonin 1 mg tablet 1 mg PO BEDTIME PRN carbidopa-levodopa 50-200 mg tablet extended release 1 tab PO BEDTIME calcium carbonate 500 mg calcium (1,250 mg) tablet 500 mg PO DAILY cholecalciferol (vitamin D3) 25 mcg (1,000 unit) capsule 25 mcg PO DAILY triamcinolone acetonide [Kenalog] 40 mg/mL suspension 40 mg intra-articular ONCE Qty: 1 0RF triamcinolone acetonide [Kenalog] 40 mg/mL suspension 40 mg intra-articular ONCE PRN (Reason: arthritis) Qty: 1 0RF Referrals: Guilherme Ireland MD [Physician] - Anthony Dumont MD [Primary Care Provider] - Stand Alone Forms: Patient Portal/API
[2023-03-21 00:27] LABS: Add Manual Diff / Slide Review NO; Basophils Absolute Auto 0 /uL (0-100); Basophils Percent Auto 0.3 % (0-2); Eosinophils Absolute Auto 100 /uL (0-450); Eosinophils Percent Auto 1.9 % (2-4); Hematocrit 35.2 % (36-46); Hemoglobin 11.8 g/dL (12.0-16.0); Lymphocytes Absolute Auto 1000 /uL (1100-4500); Lymphocytes Percent Auto 17.6 % (25-40); Mean Corpuscular HGB Conc 33.5 % (30-36); Mean Corpuscular Hemoglobin 30.2 PG (26-34); Mean Corpuscular Volume 90.1 fL (80-100); Monocytes Absolute Auto 400 /uL (0-900); Monocytes Percent Auto 6.8 % (3-14); Neutrophils Absolute Auto 4100 /uL (1500-7000); Neutrophils Percent Auto 73.4 % (50-75); Platelet Count 183 X10^3/uL (150-400); Red Blood Cell Count 3.91 X10^6/uL (4.0-5.2); Red Cell Distribution Width 12.9 % (11.6-14.8); White Blood Cell Count 5.6 X10^3/uL (4.5-11.0)
[2023-03-21 00:34] LABS: Alanine Aminotransferase 10 IU/L (<35); Albumin 3.5 g/dL (3.5-5.0); Albumin Globulin Ratio 1.3 (1.0-2.8); Alkaline Phosphatase 84 U/L (38-126); Aspartate Aminotransferase 28 IU/L (14-36); BUN Creatinine Ratio 33.8 (6-22); Bilirubin Total 0.6 mg/dL (0.2-1.3); Blood Urea Nitrogen 24 mg/dL (7-17); Calcium 8.9 mg/dL (8.4-10.2); Carbon Dioxide 27 mmol/L (22-32); Chloride 102 mmol/L (98-107); Estimated Glomerular Filt Rate > 60 mL/min (>60); Globulin 2.8 g/dL (1.7-4.1); Glucose 159 mg/dL (80-110); HEMOLYSIS < 15 (0-50); Lipase 254 U/L (23-300); Potassium 3.5 mmol/L (3.4-5.1); Sodium 135 mmol/L (137-145); Total Protein 6.3 g/dL (6.3-8.2)
[2023-03-21 02:32] VITALS: BP 120/56; PULSE 64; TEMP 36.2; O2SAT 95
[2023-03-21 02:33] VITALS: BP 120/56; PULSE 70; O2SAT 96
[2023-03-21 02:45] LABS: Bacteria Urine None Seen; Culture Indicated Urine Specimen Cultured; RBC Urine 1-5/HPF (0-5/HPF); Squamous Epithelial Cell Urine None Seen (0-5/HPF); WBC Urine 1-5/HPF (0-5/HPF)
[2023-03-21 03:00] VITALS: BP 114/58; PULSE 68; O2SAT 95
== END 2023-03-21 03:10 | disposition home or self-care (01) ==
PROVIDERS: Emergency Provider Emergency Medicine; PCP Family Medicine
DX: N20.1 Calculus of ureter (principal)
CPT/HCPCS: 36415; 51798; 74177; 80053; 81003; 81015; 83690; 85025; 87086; 99283; 99284; Q9967

== ENCOUNTER 2023-03-21 14:25 | Day surgery (SDC) | payer MEDICARE, OTHER, SELFPAY ==
--- NOTE | 2023-03-21 | DI.RAD.S_ITS ---
PROCEDURE: XR KUB INDICATIONS: Right UPJ calculus TECHNIQUE: One view of the abdomen acquired. COMPARISON: [facility], CT, CT ABDOMEN PELVIS W CON, 03/21/2023, 0:45. FINDINGS: Surgical changes and devices: Left hip arthroplasty. Bowel: Bowel gas pattern is normal. Soft tissues: No suspicious abdominal calcifications. Calcification is present overlying right renal shadow. Visualized solid organ contours appear normal in size. Bones: No suspicious bony lesions. IMPRESSION: Calcification is noted overlying the right renal shadow. Dictated by: Jeanine Baez M.D. on 03/21/2023 at 15:34 Approved by: Jeanine Baez M.D. on 03/21/2023 at 15:36
--- NOTE | 2023-03-21 | DI.RAD.S_ITS ---
PROCEDURE: XR ABDOMEN 1V INDICATIONS: CYSTO PLACEMENT TECHNIQUE: 2 intra-operative images acquired by the Urology service. COMPARISON: None. FINDINGS: Fluoroscopically guided placement of a right ureteral stent IMPRESSION: Right ureteral stent placed Dictated by: Shaun Jacobs M.D. on 03/21/2023 at 16:49 Approved by: Shaun Jacobs M.D. on 03/21/2023 at 16:49
[2023-03-21 15:11] VITALS: BP 137/73; PULSE 65; RESP 20; TEMP 36.3; O2SAT 96; BMI 23.1
[2023-03-21] MEDS: ACETAMINOPHEN IV 1,000 MG/100 ML VIAL 400 MG IV (15:22)
[2023-03-21] MEDS: LACTATED RINGERS 1,000 ML 21 ML IV (15:22)
--- NOTE | 2023-03-21 15:40 | PM.PREOP ---
Pre-operative Note COVID-19 Criteria for continued procedure: Expected advancement of disease process, Possibility delay results in more complex future surgery or treatment, Continuing or worsening of significant or severe pain, Deterioration of the patient's condition or overall health, Delay expected to result in less-positive ultimate med/surg outcome and Non-surgical alternatives not available or appropriate per current SOC Interval Note History & Physical reviewed/Exam performed by Physician: Yes Changes to H&P: No
[2023-03-21] MEDS: CEFAZOLIN 2 GM/100 ML PREMIX 100 ML IV (15:55)
--- NOTE | 2023-03-21 16:02 | SUR.OPER ---
Lithotomy on padded OR bed, head on pillow, arms secured on padded arm boards at <90 degrees abduction. Legs secured in padded yellow fins stirrups.
[2023-03-21 16:19] VITALS: BP 92/41; PULSE 63; RESP 12; TEMP 36.6; O2SAT 97
--- NOTE | 2023-03-21 16:21 | P.OP_ITS ---
Operative Date/Time/Diagnoses Date of procedure: 03/21/23 Time of procedure: 16:10 Pre-op diagnosis: 1. Obstructing 1.2 cm right ureteropelvic junction calculus. 2. Intractable right renal colic. Post-op diagnosis: same Procedure & Clinicians Procedure: 1. Cystoscopy/right ureteral stone manipulation without removal. 2. Cystoscopy/placement right ureteral stent (7 [place] by 22-32 cm multi- length). Same procedure as scheduled: Yes Indications: 1. Obstructing 1.2 cm right ureteropelvic junction calculus. 2. Intractable right renal colic. Surgeon: Guilherme Ireland Click Yes if Unassisted: Yes Anesthesia Type: General Operative Notes Findings: 1. Index calculus migrated from right UPJ in the right lower pole following advancement of the 0.35 hybrid ureteral guidewire. 2. Urethra prominent, moderate-sized urethral caruncle without thrombosis or active bleeding. 3. Bladder trace to 1+ trabeculation. Normal ureteral orifices bilaterally. Modest postobstructive efflux seen emitting from the right ureteral orifice after stone manipulation. Closure Type: not applicable Specimen(s): none sent Applied: other (Seven [place] by 20-32 cm multi-length ureteral stent) Estimated Blood Loss (mL): 0 Blood products transfused: none Procedure in detail: Patient was positioned in supine was administered intravenous sedation/MAC. 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 The perineum lower abdomen genitalia and groin were then prepped and draped in sterile fashion. The 22 Canadian panendoscope was then passed the lower urinary tract with the findings as described above. A 0.35 hybrid guidewire was then selected and advanced over the right collecting system under direct and fluoroscopic guidance. The index calculus was seen to mobilize enroll into the lower pole of the right collecting system under fluoroscopy. Next, a 7 Canadian by 22-32 cm multi-length stent was selected. This was advanced over the hybrid guidewire again under direct and fluoroscopic guidance. NO RETRIEVAL LINE WAS LEFT ATTACHED. The bladder is then drained completely and all instrumentation was removed. The patient was then repositioned supine, was awakened, then transferred to [facility] stable condition. Complications: none Post-operative Condition: stable Disposition: PACU Plan for aftercare: Discharge home
[2023-03-21 16:25] VITALS: BP 96/52; PULSE 63; RESP 12; O2SAT 99
[2023-03-21 16:30] VITALS: BP 112/55; PULSE 65; RESP 12; O2SAT 97
[2023-03-21] MEDS: HYDROCODONE/ACET 5/325 TABLET 1 TAB PO (16:40)
[2023-03-21 16:45] VITALS: BP 111/64; PULSE 69; RESP 12; O2SAT 99
[2023-03-21 17:00] VITALS: BP 127/58; PULSE 62; RESP 14; TEMP 36.4; O2SAT 99
== END 2023-03-21 17:30 | disposition home or self-care (01) ==
PROVIDERS: PCP Family Medicine; Referring Provider Specialist; Visit Provider Specialist
PROC: (CPT 52330; principal; 2023-03-21 16:00)
DX: N20.1 Calculus of ureter (principal)
CPT/HCPCS: 52330; 52332; 36415; 51798; 74018; 74177; 76000; 81003; 99215; 99284; J0131; J0690; J2704; J3010; Q9967

== ENCOUNTER 2023-03-30 09:23 | Day surgery (SDC) | payer MEDICARE, OTHER, SELFPAY ==
[2023-03-29 14:11] VITALS: BMI 23.2
--- NOTE | 2023-03-30 | DI.RAD.S_ITS ---
PROCEDURE: XR KUB INDICATIONS: Right renal calculus TECHNIQUE: One view of the abdomen acquired. COMPARISON: [facility], , XR KUB, 03/21/2023, 14:37. FINDINGS: Surgical changes and devices: Right ureteral catheter in place. Bowel: Bowel gas pattern is normal. Soft tissues: Similar appearance of calcification projecting over the right renal shadow. Visualized solid organ contours appear normal in size. Bones: No suspicious bony lesions. Severe scoliotic changes of the lumbar spine. Multilevel degenerative changes. Left hip arthroplasty. IMPRESSION: Interval placement of right ureteral stent. Similar appearance of calcification projecting over the right renal shadow. Dictated by: Charbel Valadez M.D. on 03/30/2023 at 9:53 Approved by: Charbel Valadez M.D. on 03/30/2023 at 9:55
[2023-03-30 10:12] VITALS: BP 141/71; PULSE 65; RESP 12; TEMP 36.6; O2SAT 99; BMI 23.3
--- NOTE | 2023-03-30 10:26 | PM.PREOP ---
Pre-operative Note COVID-19 Criteria for continued procedure: Expected advancement of disease process, Possibility delay results in more complex future surgery or treatment, Continuing or worsening of significant or severe pain, Delay expected to result in less-positive ultimate med/surg outcome and Non-surgical alternatives not available or appropriate per current SOC Interval Note History & Physical reviewed/Exam performed by Physician: Yes Changes to H&P: No
[2023-03-30] MEDS: LACTATED RINGERS 1,000 ML 21 ML IV (10:31)
[2023-03-30] MEDS: ACETAMINOPHEN IV 1,000 MG/100 ML VIAL 400 MG IV (10:32)
[2023-03-30] MEDS: CIPROFLOXACIN 400 MG/200 ML PIGGYBACK 200 MG IV (10:54)
--- NOTE | 2023-03-30 11:03 | SUR.OPER ---
Supine on ESWL table, head on pillow, arms padded and tucked, legs uncrossed and elevated on a pillow, tape over blanket over lower legs.
[2023-03-30 11:43] VITALS: BP 95/55; PULSE 73; RESP 12; TEMP 36.3; O2SAT 97
[2023-03-30 11:48] VITALS: BP 95/56; PULSE 60; RESP 12; O2SAT 98
[2023-03-30 11:53] VITALS: BP 102/58; PULSE 60; RESP 12; O2SAT 97
--- NOTE | 2023-03-30 11:57 | PM.OP.1 ---
Operative Date/Time/Diagnoses Date of procedure: 03/30/23 Time of procedure: 11:40 Pre-op diagnosis: 1. Right calculus. 2. Retained right ureteral stent. 3. History of right colic. Post-op diagnosis: same Procedure & Clinicians Procedure: 1. 1st stage right extracorporeal shockwave lithotripsy (7.03 shocks). Same procedure as scheduled: Yes Indications: 1. Right renal calculus. 2. Retained right ureteral stent. 3. History of right renal colic. Surgeon: Guilherme Ireland Click Yes if Unassisted: Yes Anesthesia Type: General Operative Notes Findings: Index calculus and right ureteral stent unchanged in position compared to preoperative imaging. Closure Type: not applicable Specimen(s): none sent Estimated Blood Loss (mL): 0 Blood products transfused: none Procedure in detail: The patient was positioned supine was administered general anesthesia. The above-described stone was then localized in the X, Y, and Z plain. Lithotripsy was then commenced at minimal power level for 200 shocks. A 2 minute pause was conducted. Lithotripsy was then resumed and the power level gradually increased to 7.0. The stone fragments were Re localized as indicated throughout the case with fluoroscopy. At 3000 shocks there appeared to be significant evidence of stone comminution radiographically. Treatment was halted. The patient was then awakened, transferred to [facility], then transported recovery in stable condition. Complications: none Post-operative Condition: stable Disposition: PACU Plan for aftercare: Discharge home.
[2023-03-30 12:00] VITALS: BP 108/61; PULSE 65; RESP 12; O2SAT 96
[2023-03-30] MEDS: FUROSEMIDE 40 MG/4 ML VIAL 20 MG IV (12:04)
[2023-03-30 12:15] VITALS: BP 114/57; PULSE 64; RESP 12; O2SAT 99
== END 2023-03-30 13:06 | disposition home or self-care (01) ==
PROVIDERS: PCP Family Medicine; Referring Provider Specialist; Visit Provider Specialist
PROC: (CPT 50590; principal; 2023-03-30 10:45)
DX: N20.1 Calculus of ureter (principal); Z96.0 Presence of urogenital implants
CPT/HCPCS: 50590; 74018; J0131; J0744; J1940; J2405; J3010

== ENCOUNTER → 2023-04-13 18:15 | Outpatient (CLI) | payer MEDICARE, OTHER, SELFPAY ==
--- NOTE | 2023-04-13 18:18 | DI.RAD.S_ITS ---
PROCEDURE: XR KUB INDICATIONS: ureteral stone TECHNIQUE: One view of the abdomen acquired. COMPARISON: [facility], , XR KUB, 03/30/2023, 9:22. FINDINGS: Surgical changes and devices: Right ureteral stent. Left hip arthroplasty. Previously seen right renal calculus is not seen. Bowel: Bowel gas pattern is normal. Soft tissues: No suspicious abdominal calcifications. Visualized solid organ contours appear normal in size. Bones: No suspicious bony lesions. IMPRESSION: Postsurgical sequelae. Dictated by: Charlie Castelan M.D. on 04/13/2023 at 18:54 Approved by: Charlie Castelan M.D. on 04/13/2023 at 18:54
== END ==
PROVIDERS: PCP Family Medicine; Referring Provider Specialist; Visit Provider Specialist
DX: N20.1 Calculus of ureter (principal)
CPT/HCPCS: 74018

== ENCOUNTER → 2023-04-17 11:55 | Outpatient (CLI) | payer MEDICARE, OTHER, SELFPAY | PROVIDERS: PCP Family Medicine; Visit Provider Specialist | DX: N20.0 Calculus of kidney (principal); R31.9 Hematuria, unspecified; R32 Unspecified urinary incontinence; N95.2 Postmenopausal atrophic vaginitis; Z96.0 Presence of urogenital implants | CPT/HCPCS: 51701; 81002; 87086; 99215 ==

== ENCOUNTER → 2023-05-15 12:43 | Outpatient (CLI) | payer MEDICARE, OTHER, SELFPAY | PROVIDERS: PCP Family Medicine; Visit Provider Specialist | DX: N95.2 Postmenopausal atrophic vaginitis (principal); R31.9 Hematuria, unspecified; R32 Unspecified urinary incontinence; Z87.442 Personal history of urinary calculi; Z87.440 Personal history of urinary (tract) infections | CPT/HCPCS: 52310; 81002; 87077; 87086; 87186; 99215 ==

== ENCOUNTER → 2023-08-02 12:00 | Outpatient (CLI) | payer MEDICARE, OTHER, SELFPAY ==
[2023-08-02 13:42] LABS: Add Manual Diff / Slide Review NO; Basophils Absolute Auto 0 /uL (0-100); Basophils Percent Auto 0.7 % (0-2); Eosinophils Absolute Auto 200 /uL (0-450); Eosinophils Percent Auto 3.2 % (2-4); Hematocrit 34.1 % (36-46); Hemoglobin 11.1 g/dL (12.0-16.0); Lymphocytes Absolute Auto 900 /uL (1100-4500); Mean Corpuscular HGB Conc 32.7 % (30-36); Mean Corpuscular Hemoglobin 28.1 PG (26-34); Mean Corpuscular Volume 86.1 fL (80-100); Monocytes Absolute Auto 300 /uL (0-900); Monocytes Percent Auto 6.2 % (3-14); Neutrophils Absolute Auto 3700 /uL (1500-7000); Neutrophils Percent Auto 71.9 % (50-75); Platelet Count 236 X10^3/uL (150-400); Red Blood Cell Count 3.97 X10^6/uL (4.0-5.2); Red Cell Distribution Width 13.8 % (11.6-14.8); White Blood Cell Count 5.1 X10^3/uL (4.5-11.0)
[2023-08-02 13:58] LABS: Alanine Aminotransferase 7 IU/L (<35); Albumin 3.8 g/dL (3.5-5.0); Albumin Globulin Ratio 1.1 (1.0-2.8); Alkaline Phosphatase 101 U/L (38-126); Aspartate Aminotransferase 29 IU/L (14-36); BUN Creatinine Ratio 28.4 (6-22); Bilirubin Total 0.5 mg/dL (0.2-1.3); Blood Urea Nitrogen 19 mg/dL (7-17); C-Reactive Protein Quant 2.7 mg/dL (<1.0); Calcium 9.9 mg/dL (8.4-10.2); Carbon Dioxide 31 mmol/L (22-32); Chloride 99 mmol/L (98-107); Estimated Glomerular Filt Rate > 60 mL/min (>60); Globulin 3.4 g/dL (1.7-4.1); Glucose 136 mg/dL (80-110); HEMOLYSIS < 15 (0-50); Potassium 4.1 mmol/L (3.4-5.1); Sodium 135 mmol/L (137-145); Total Protein 7.2 g/dL (6.3-8.2)
[2023-08-02 14:00] LABS: Rheumatoid Factor < 8.6 IU/mL (<12.0)
[2023-08-02 14:01] LABS: Erythrocyte Sedimentation Rate 41 MM/HR (0-20)
[2023-08-02 15:01] LABS: Folate 5.4 ng/mL (2.76-20.0); Vitamin B12 > 1000 pg/mL (239-931)
[2023-08-03 19:07] LABS: Free Kappa Lt Chains, Serum 32.2 mg/L (3.3-19.4)
[2023-08-06 13:55] LABS: Antimyeloperoxidase Antibodies <0.2 units (0.0-0.9); Antiproteinase 3 Antibodies <0.2 units (0.0-0.9); Cytoplasmic C-ANCA <1:20 titer (Neg:<1:20); Perinuclear P-ANCA <1:20 titer (Neg:<1:20)
[2023-08-06 14:10] LABS: Albumin 2.8 g/dL (2.9-4.4); Alpha-1-Globulin 0.3 g/dL (0.0-0.4); Alpha-2-Globulin 0.8 g/dL (0.4-1.0); Gamma Globulin 1.4 g/dL (0.4-1.8); Globulin Total 3.5 g/dL (2.2-3.9); Protein, Total 6.3 g/dL (6.0-8.5)
[2023-08-07 20:55] LABS: ANA Screen, IFA Positive (.)
== END ==
PROVIDERS: PCP Family Medicine; Referring Provider Psychiatry & Neurology Neurology; Visit Provider Psychiatry & Neurology Neurology
DX: I73.81 Erythromelalgia (principal)
CPT/HCPCS: 36415; 80053; 82607; 82746; 83883; 84155; 84165; 85025; 85651; 86038; 86140; 86256; 86430

== ENCOUNTER → 2023-08-14 10:42 | Outpatient (CLI) | payer MEDICARE, OTHER, SELFPAY ==
--- NOTE | 2023-08-14 10:44 | DI.RAD.S_ITS ---
PROCEDURE: XR KUB INDICATIONS: kidney stones TECHNIQUE: One view of the abdomen acquired. COMPARISON: [facility], CR, XR KUB, 04/13/2023, 18:29. [facility], CR, XR KUB, 03/30/2023, 9:22. FINDINGS: Surgical changes and devices: Ureteral stent not seen on this study. Partially seen left hip arthroplasty. Bowel: Moderate to large fecal loading. Soft tissues: Kidneys are obscured by overlapping bowel gas and scoliosis and costal cartilage calcifications. No definite intrarenal stones. Bones: Scoliosis and degenerative changes. IMPRESSION: Radiographic evaluation is limited due to overlapping bowel gas and scoliosis. No obvious stone. Dictated by: Placido Soriano M.D. on 08/14/2023 at 15:33 Approved by: Placido Soriano M.D. on 08/14/2023 at 15:35
--- NOTE | 2023-08-14 10:46 | DI.US.S_ITS ---
PROCEDURE: US ARTERIAL DUPLEX LE BI INDICATIONS: ERYTHROMELAGIA TECHNIQUE: Color and pulse Doppler interrogation was performed of both lower extremity arterial systems, with image documentation. COMPARISON: None. FINDINGS: Right lower extremity: Common femoral artery: 197 cm/sec, with biphasic flow. Deep femoral artery: 87 cm/sec, with biphasic flow. Proximal superficial femoral artery: 167.5 cm/sec, with triphasic flow. Mid superficial femoral artery: 126.8 cm/sec, with triphasic flow. Distal superficial femoral artery: 130.5 cm/sec, with triphasic flow. Popliteal artery: 136 cm/sec, with triphasic flow. Posterior tibial artery: 101.9 cm/sec, with triphasic flow. Anterior tibial artery/dorsalis pedis: 62.9 cm/sec, with biphasic flow. Brandon-scale imaging description: Prominent right inguinal lymph node with normal morphology measuring 3.1 x 0.8 cm. Left lower extremity: Common femoral artery: 113.5 cm/sec, with triphasic flow. Deep femoral artery: 123.6 cm/sec, with biphasic flow. Proximal superficial femoral artery: 107.7 cm/sec, with biphasic flow. Mid superficial femoral artery: 123.8 cm/sec, with triphasic flow. Distal superficial femoral artery: 128 cm/sec, with triphasic flow. Popliteal artery: 85 cm/sec, with triphasic flow. Posterior tibial artery: 71.3 cm/sec, with biphasic above baseline flow. Anterior tibial artery/dorsalis pedis: 62 point cm/sec, with biphasic above baseline flow. Brandon-scale imaging description: Prominent left inguinal lymph node with normal morphology measuring 2 x 0.5 cm. IMPRESSION: 1. Multiphasic waveforms of the bilateral lower extremity arterial vasculature with no velocity shift to suggest hemodynamically significant stenosis. 2. Bilateral prominent, but not enlarged, inguinal lymph nodes with normal morphology which are likely reactive. Dictated by: Eri Walsh M.D. on 08/14/2023 at 16:35 Approved by: Eri Walsh M.D. on 08/14/2023 at 16:38
== END ==
PROVIDERS: PCP Family Medicine; Referring Provider Psychiatry & Neurology Neurology; Visit Provider Psychiatry & Neurology Neurology
DX: I73.81 Erythromelalgia (principal); G62.9 Polyneuropathy, unspecified; R26.89 Other abnormalities of gait and mobility; N95.2 Postmenopausal atrophic vaginitis; Z87.442 Personal history of urinary calculi; Z87.440 Personal history of urinary (tract) infections
CPT/HCPCS: 51798; 74018; 81002; 93925; 99215

== ENCOUNTER → 2023-11-20 15:20 | Outpatient (CLI) | payer MEDICARE, OTHER, SELFPAY ==
--- NOTE | 2023-11-20 15:21 | DI.MG.S_ITS ---
BILATERAL DIGITAL SCREENING MAMMOGRAM 3D/2D WITH CAD: 11/20/2023 CLINICAL: Routine screening. Comparison is made to exams dated: 10/06/2022 mammogram - [facility], 02/12/2019 mammogram, 06/08/2016 mammogram, and 12/02/2014 mammogram - outside facility. There are scattered areas of fibroglandular density in both breasts (category b / 25%-50% glandular tissue). Current study was also evaluated with a Computer Aided Detection (CAD) system. No significant masses, calcifications, or other findings are seen in either breast. There has been no significant interval change. IMPRESSION: NEGATIVE There is no mammographic evidence of malignancy. A 1 year screening mammogram is recommended. Based on the Tyrer Cuzick model (a risk assessment model) the patient's lifetime risk is 0.4% and her 10 year risk is 0.0%. According to the ACR, ACS, and NCCN guidelines, an annual breast MRI exam along with mammogram is recommended if the patient's lifetime risk is 20% or greater. This exam was interpreted at Station ID: [id number]. NOTE: For mammograms, a report in lay terms will be sent to the patient. Approximately 15% of breast malignancies will not be visualized mammographically. In the management of a palpable breast mass, a negative mammogram must not discourage biopsy of a clinically suspicious lesion. Electronically Signed By: Nirmal mayo/francine:11/21/2023 08:39:15 letter sent: Normal Exam ACR BI-RADS Category 1: Negative [id number]
== END ==
PROVIDERS: PCP Family Medicine; Referring Provider Family Medicine; Visit Provider Family Medicine
DX: Z12.31 Encounter for screening mammogram for malignant neoplasm of breast (principal); R92.323 Mammographic fibroglandular density, bilateral breasts
CPT/HCPCS: 77063; 77067

== ENCOUNTER → 2024-02-07 13:18 | Outpatient (CLI) | payer MEDICARE, OTHER, SELFPAY | LOC: WC 02-14 13:19 | PROVIDERS: PCP Family Medicine; Referring Provider Dermatology MOHS-Micrographic Surgery; Visit Provider Surgery | DX: T81.89XA Other complications of procedures, not elsewhere classified, initial encounter (principal); S81.802A Unspecified open wound, left lower leg, initial encounter; I89.0 Lymphedema, not elsewhere classified; I87.2 Venous insufficiency (chronic) (peripheral); G20.A1 Parkinson's disease without dyskinesia, without mention of fluctuations | CPT/HCPCS: 11042; 87070; 87205; 99213; 99214 ==

== ENCOUNTER → 2024-02-14 13:20 | Outpatient (CLI) | payer MEDICARE, OTHER, SELFPAY | PROVIDERS: PCP Family Medicine; Referring Provider Dermatology MOHS-Micrographic Surgery; Visit Provider Physician Assistant | DX: T81.89XA Other complications of procedures, not elsewhere classified, initial encounter (principal); S81.802A Unspecified open wound, left lower leg, initial encounter; I89.0 Lymphedema, not elsewhere classified; G20.A1 Parkinson's disease without dyskinesia, without mention of fluctuations; I87.2 Venous insufficiency (chronic) (peripheral) | CPT/HCPCS: 11042; 99213 ==